=== PATIENT | female | born 1980 | race Caucasian/White ===

== ENCOUNTER 2016-10-25 13:04 | Emergency (ER) | payer MEDICAID ==
[~2016-10-25] VITALS: Ht 165.1 cm; Wt 60.0 kg
[2016-10-25] MEDS ORDERED: AMOXICILLIN500 MG PO (13:23)
[2016-10-25 13:35] VITALS: BP 139/84
== END 2016-10-25 13:35 | disposition home or self-care (01) | DRG 153 ==
LOC: ED 13:04
DX: J02.9 Acute pharyngitis, unspecified (principal); R09.81 Nasal congestion; R05 Cough

== ENCOUNTER 2018-01-09 19:18 | Emergency (ER) | payer SELFPAY ==
[~2018-01-09] VITALS: Ht 162.6 cm; Wt 71.0 kg
[~2018-01-09 19:18] MED LIST: AMOXICILLIN500 MG PO
[2018-01-09 20:02] LABS: HEMATOCRIT 37.8 % (37.0-47.0); IMMATURE GRANULOCYTES 0.2 % (0.0-5.0); MEAN CELL VOLUME 95.5 fL CALC (80.0-100.0); MEAN CORPUSCULAR HGB 32.8 pG CALC (26.0-32.0); MEAN CORPUSCULAR HGB CONC 34.4 g/L CALC (32.0-36.0); NEUT# 2.12 thou/uL (2.00-7.15); RED BLOOD COUNT 3.96 mill/uL (4.20-5.60); RED CELL DISTRI WIDTH 12.6 % (11.5-15.5)
[2018-01-09 20:23] LABS: ALBUMIN 4.9 g/dL (3.2-5.0); ALKALINE PHOSPHATASE 70 u/l (38-126); ANION GAP 14 (6-22 (CALC)); BILIRUBIN, TOTAL 0.4 mg/dL (0.0-1.4); BUN 13 mg/dL (7-17); BUN/CREATININE RATIO 17 (12-20 (CALC)); CARBON DIOXIDE 28 mmol/l (22-30); CHLORIDE 106 mmol/l (95-108); CREATININE 0.7 mg/dL (0.5-1.0); GFR > 60 ML/MIN (>=60 (CALC)); GFR FOR AFR.AMER. > 60 ML/MIN (>=60 (CALC)); POTASSIUM 3.8 mmol/l (3.5-5.1); SGOT/AST 24 u/l (14-36); SODIUM 144 mmol/l (137-146); TOTAL PROTEIN 8.1 g/dL (6.3-8.2)
[2018-01-09 20:52] LABS: URINE BILIRUBIN - DIPSTICK NEGATIVE (NEGATIVE); URINE BLOOD DIPSTICK LARGE (NEGATIVE); URINE CLARITY CLEAR; URINE GLUCOSE - DIPSTICK NEGATIVE (NEGATIVE); URINE KETONE NEGATIVE (NEGATIVE); URINE LEUK ESTERASE NEGATIVE (NEGATIVE); URINE NITRITE - DIPSTICK NEGATIVE (Negative); URINE PH 5.5 (4.5-8.0); URINE PROTEIN - DIPSTICK NEGATIVE (NEG-TRACE); URINE SPECIFIC GRAVITY <=1.005; URINE UROBILINOGEN - DIPSTICK 0.2 E.U./dL (0.2)
[2018-01-09 20:53] LABS: URINE COLOR RED
[2018-01-09 20:55] LABS: URINE RBC TNTC RBC/hpf (0-5); URINE SQUAMOUS EPITHELIAL CELL FEW EPI/hpf (0-FEW)
[2018-01-09] MEDS ORDERED: IBUPROFEN600 MG PO (21:22)
[2018-01-09 21:41] VITALS: BP 120/76
== END 2018-01-09 21:39 | disposition home or self-care (01) | DRG 696 ==
LOC: ED 19:18
DX: R31.9 Hematuria, unspecified (principal); N20.0 Calculus of kidney; Z87.442 Personal history of urinary calculi; M54.9 Dorsalgia, unspecified; R50.9 Fever, unspecified

== ENCOUNTER 2018-01-20 11:36 | Emergency (ER) | payer SELFPAY ==
[~2018-01-20] VITALS: Ht 162.6 cm; Wt 68.2 kg
[~2018-01-20 11:36] MED LIST changes: +IBUPROFEN600 MG PO
[2018-01-20 12:29] LABS: HEMATOCRIT 36.6 % (37.0-47.0); HEMOGLOBIN 12.6 g/dl (12.0-16.0); IMMATURE GRANULOCYTES 0.2 % (0.0-5.0); MEAN CELL VOLUME 96.1 fL CALC (80.0-100.0); MEAN CORPUSCULAR HGB 33.1 pG CALC (26.0-32.0); MEAN CORPUSCULAR HGB CONC 34.4 g/L CALC (32.0-36.0); NEUT# 2.96 thou/uL (2.00-7.15); RED BLOOD COUNT 3.81 mill/uL (4.20-5.60); RED CELL DISTRI WIDTH 12.4 % (11.5-15.5)
[2018-01-20 12:33] LABS: URINE BILIRUBIN - DIPSTICK NEGATIVE (NEGATIVE); URINE BLOOD DIPSTICK NEGATIVE (NEGATIVE); URINE COLOR YELLOW; URINE GLUCOSE - DIPSTICK NEGATIVE (NEGATIVE); URINE KETONE NEGATIVE (NEGATIVE); URINE LEUK ESTERASE NEGATIVE (NEGATIVE); URINE NITRITE - DIPSTICK NEGATIVE (Negative); URINE PROTEIN - DIPSTICK NEGATIVE (NEG-TRACE); URINE SPECIFIC GRAVITY >=1.030; URINE UROBILINOGEN - DIPSTICK 0.2 E.U./dL (0.2)
[2018-01-20 12:36] LABS: URINE CLARITY CLEAR
[2018-01-20 12:51] LABS: ALBUMIN 4.4 g/dL (3.2-5.0); ALKALINE PHOSPHATASE 62 u/l (38-126); ANION GAP 11 (6-22 (CALC)); BILIRUBIN, TOTAL 0.4 mg/dL (0.0-1.4); BUN 17 mg/dL (7-17); BUN/CREATININE RATIO 25 (12-20 (CALC)); CARBON DIOXIDE 26 mmol/l (22-30); CHLORIDE 108 mmol/l (95-108); CREATININE 0.7 mg/dL (0.5-1.0); GFR > 60 ML/MIN (>=60 (CALC)); GFR FOR AFR.AMER. > 60 ML/MIN (>=60 (CALC)); POTASSIUM 4.1 mmol/l (3.5-5.1); SGOT/AST 18 u/l (14-36); SODIUM 142 mmol/l (137-146); TOTAL PROTEIN 7.1 g/dL (6.3-8.2)
[2018-01-20 13:46] VITALS: BP 113/71
== END 2018-01-20 13:57 | disposition home or self-care (01) | DRG 694 ==
LOC: ED 11:36
DX: N20.0 Calculus of kidney (principal); Z87.442 Personal history of urinary calculi; R10.9 Unspecified abdominal pain
CPT/HCPCS: Q9967

== ENCOUNTER 2018-03-03 12:44 | Emergency (ER) | payer SELFPAY ==
[~2018-03-03] VITALS: Ht 162.6 cm; Wt 66.0 kg
[2018-03-03 14:09] LABS: URINE BILIRUBIN - DIPSTICK NEGATIVE (NEGATIVE); URINE BLOOD DIPSTICK NEGATIVE (NEGATIVE); URINE COLOR YELLOW; URINE GLUCOSE - DIPSTICK NEGATIVE (NEGATIVE); URINE KETONE NEGATIVE (NEGATIVE); URINE LEUK ESTERASE NEGATIVE (NEGATIVE); URINE NITRITE - DIPSTICK NEGATIVE (Negative); URINE PH 5.5 (4.5-8.0); URINE PROTEIN - DIPSTICK NEGATIVE (NEG-TRACE); URINE SPECIFIC GRAVITY <=1.005; URINE UROBILINOGEN - DIPSTICK 0.2 E.U./dL (0.2)
[2018-03-03 15:15] VITALS: BP 117/79
== END 2018-03-03 15:25 | disposition home or self-care (01) | DRG 206 ==
LOC: ED 12:44
PROVIDERS: Emergency Medicine
DX: M94.0 Chondrocostal junction syndrome [Tietze] (principal); F17.210 Nicotine dependence, cigarettes, uncomplicated; Z85.3 Personal history of malignant neoplasm of breast

== ENCOUNTER 2018-03-20 18:34 | Emergency (ER) | payer OTHER ==
[~2018-03-20] VITALS: Ht 162.6 cm; Wt 70.0 kg
[2018-03-20 19:12] VITALS: BP 142/86
== END 2018-03-20 19:12 | disposition home or self-care (01) | DRG 923 ==
LOC: ED 18:34
DX: Z04.1 Encounter for examination and observation following transport accident (principal); F17.210 Nicotine dependence, cigarettes, uncomplicated; Z96.89 Presence of other specified functional implants; Z85.3 Personal history of malignant neoplasm of breast

== ENCOUNTER 2018-05-04 08:41 | Emergency (ER) | payer SELFPAY ==
[~2018-05-04] VITALS: Ht 162.6 cm; Wt 65.0 kg
[2018-05-04 09:14] LABS: HEMOGLOBIN 13.3 g/dl (12.0-16.0); IMMATURE GRANULOCYTES 0.3 % (0.0-5.0); MEAN CELL VOLUME 96.6 fL CALC (80.0-100.0); MEAN CORPUSCULAR HGB 32.1 pG CALC (26.0-32.0); MEAN CORPUSCULAR HGB CONC 33.3 g/L CALC (32.0-36.0); NEUT# 2.63 thou/uL (2.00-7.15); RED BLOOD COUNT 4.14 mill/uL (4.20-5.60); RED CELL DISTRI WIDTH 12.9 % (11.5-15.5)
[2018-05-04 09:35] LABS: ANION GAP 15 (6-22 (CALC)); BUN 21 mg/dL (7-17); BUN/CREATININE RATIO 30 (12-20 (CALC)); CARBON DIOXIDE 25 mmol/l (22-30); CHLORIDE 104 mmol/l (95-108); CREATININE 0.7 mg/dL (0.5-1.0); GFR > 60 ML/MIN (>=60 (CALC)); GFR FOR AFR.AMER. > 60 ML/MIN (>=60 (CALC)); POTASSIUM 4.4 mmol/l (3.5-5.1); SODIUM 139 mmol/l (137-146)
[2018-05-04] MEDS ORDERED: MECLIZINE25 MG PO (09:55)
[2018-05-04 09:59] VITALS: BP 117/82
== END 2018-05-04 10:06 | disposition home or self-care (01) | DRG 149 ==
LOC: ED 08:41
PROVIDERS: Family Medicine
DX: R42 Dizziness and giddiness (principal); F17.200 Nicotine dependence, unspecified, uncomplicated

== ENCOUNTER 2018-05-08 09:30 | Emergency (ER) | payer SELFPAY ==
[~2018-05-08] VITALS: Ht 162.6 cm; Wt 45.0 kg
[~2018-05-08 09:30] MED LIST changes: +MECLIZINE25 MG PO
[2018-05-08 10:24] LABS: HEMATOCRIT 40.8 % (37.0-47.0); HEMOGLOBIN 13.6 g/dl (12.0-16.0); IMMATURE GRANULOCYTES 0.2 % (0.0-5.0); MEAN CELL VOLUME 97.1 fL CALC (80.0-100.0); MEAN CORPUSCULAR HGB 32.4 pG CALC (26.0-32.0); MEAN CORPUSCULAR HGB CONC 33.3 g/L CALC (32.0-36.0); NEUT# 2.49 thou/uL (2.00-7.15); RED BLOOD COUNT 4.2 mill/uL (4.20-5.60); RED CELL DISTRI WIDTH 12.7 % (11.5-15.5)
[2018-05-08 10:40] LABS: ANION GAP 15 (6-22 (CALC)); BUN 19 mg/dL (7-17); BUN/CREATININE RATIO 26 (12-20 (CALC)); CARBON DIOXIDE 26 mmol/l (22-30); CHLORIDE 104 mmol/l (95-108); CREATININE 0.8 mg/dL (0.5-1.0); GFR > 60 ML/MIN (>=60 (CALC)); GFR FOR AFR.AMER. > 60 ML/MIN (>=60 (CALC)); POTASSIUM 4.3 mmol/l (3.5-5.1); SODIUM 141 mmol/l (137-146)
[2018-05-08 12:09] VITALS: BP 145/77
== END 2018-05-08 12:09 | disposition home or self-care (01) | DRG 149 ==
LOC: ED 09:30
PROVIDERS: Family Medicine
DX: R42 Dizziness and giddiness (principal); F17.210 Nicotine dependence, cigarettes, uncomplicated; Z85.3 Personal history of malignant neoplasm of breast
CPT/HCPCS: Q9967

== ENCOUNTER 2018-07-10 09:28 | Emergency (ER) | payer SELFPAY ==
[~2018-07-10] VITALS: Ht 162.6 cm; Wt 65.0 kg
[2018-07-10] MEDS ORDERED: CYCLOBENZAPR5 MG PO (09:52)
[2018-07-10 09:56] VITALS: BP 128/68
== END 2018-07-10 09:59 | disposition home or self-care (01) | DRG 563 ==
LOC: ED 09:28
DX: S39.012A Strain of muscle, fascia and tendon of lower back, initial encounter (principal); F17.200 Nicotine dependence, unspecified, uncomplicated; X58.XXXA Exposure to other specified factors, initial encounter; Z87.442 Personal history of urinary calculi

== ENCOUNTER 2019-02-08 20:30 | Emergency (ER) | payer SELFPAY ==
[~2019-02-08] VITALS: Ht 162.6 cm; Wt 65.9 kg
[~2019-02-08 20:30] MED LIST changes: +CYCLOBENZAPR5 MG PO
[2019-02-08 23:45] VITALS: BP 128/72
[2019-02-08] MEDS ORDERED: GENTAMICIN SULF5 ML OD (23:55)
== END 2019-02-09 00:15 | disposition home or self-care (01) | DRG 125 ==
LOC: ED 20:30
PROC: 08C0XZZ Extirpation of Matter from Right Eye, External Approach (ICD-10-PCS; principal; 2019-02-08)
DX: T15.91XA Foreign body on external eye, part unspecified, right eye, initial encounter (principal); F17.210 Nicotine dependence, cigarettes, uncomplicated; X58.XXXA Exposure to other specified factors, initial encounter

== ENCOUNTER 2019-04-29 07:32 | Emergency (ER) | payer SELFPAY ==
[~2019-04-29 07:32] MED LIST changes: +GENTAMICIN SULF5 ML OD
[2019-04-29] MEDS ORDERED: VOLTAREN - GENE75 MG PO (07:58)
[2019-04-29 08:08] VITALS: BP 122/60
== END 2019-04-29 08:10 | disposition home or self-care (01) | DRG 563 ==
LOC: ED 07:32
DX: S29.012A Strain of muscle and tendon of back wall of thorax, initial encounter (principal); F17.200 Nicotine dependence, unspecified, uncomplicated; X58.XXXA Exposure to other specified factors, initial encounter

== ENCOUNTER 2019-12-12 13:45 | Emergency (ER) | payer BC ==
[~2019-12-12] VITALS: Ht 162.6 cm; Wt 65.0 kg
[~2019-12-12 13:45] MED LIST changes: +VOLTAREN - GENE75 MG PO
[2019-12-12] MEDS ORDERED: VOLTAREN1%GEL TOP (14:08)
[2019-12-12] MEDS ORDERED: CYCLOBENZAPR5 MG PO (14:08)
[2019-12-12 14:16] VITALS: BP 121/68
== END 2019-12-12 14:38 | disposition home or self-care (01) | DRG 552 ==
LOC: ED 13:45
DX: M54.5 Low back pain (principal); F17.210 Nicotine dependence, cigarettes, uncomplicated

== ENCOUNTER 2020-06-09 13:40 | Emergency (ER) | payer SELFPAY ==
[~2020-06-09 13:40] MED LIST changes: +VOLTAREN1%GEL TOP
[2020-06-09] MEDS ORDERED: CHOLESTEROL MED (13:55)
[2020-06-09 15:55] VITALS: BP 126/78
== END 2020-06-09 15:55 | disposition home or self-care (01) | DRG 103 ==
LOC: ED 13:40
DX: R51.9 Headache, unspecified (principal); F17.200 Nicotine dependence, unspecified, uncomplicated; Z85.3 Personal history of malignant neoplasm of breast; Z87.442 Personal history of urinary calculi

== ENCOUNTER 2020-07-05 11:40 | Emergency (ER) | payer SELFPAY ==
[~2020-07-05] VITALS: Ht 162.6 cm; Wt 68.0 kg
[~2020-07-05 11:40] MED LIST changes: +CHOLESTEROL MED
[2020-07-05] MEDS ORDERED: LORATADINE10 M4 PO (12:00)
[2020-07-05] MEDS ORDERED: ATORVASTATIN CA20 MG PO (12:00)
[2020-07-05] MEDS ORDERED: ALLERGY NA50 MCG/ACT NAB (12:00)
[2020-07-05 13:03] LABS: HEMOGLOBIN 12.6 g/dl (12.0-16.0); IMMATURE GRANULOCYTES 0.1 % (0.0-5.0); MEAN CELL VOLUME 95.1 fL CALC (80.0-100.0); MEAN CORPUSCULAR HGB 30.7 pG CALC (26.0-32.0); MEAN CORPUSCULAR HGB CONC 32.3 g/dL CAL (32.0-36.0); NEUT# 4.28 thou/uL (2.00-7.15); RED BLOOD COUNT 4.1 mill/uL (4.20-5.60); RED CELL DISTRI WIDTH 13.2 % (11.5-15.5)
[2020-07-05 13:22] LABS: ANION GAP 9 (6-22 (CALC)); BUN 20 mg/dL (7-17); BUN/CREATININE RATIO 28 (12-20 (CALC)); CARBON DIOXIDE 29 mmol/l (22-30); CHLORIDE 106 mmol/l (95-108); CREATININE 0.7 mg/dL (0.5-1.0); GFR > 60 ML/MIN (>=60 (CALC)); GFR FOR AFR.AMER. > 60 ML/MIN (>=60 (CALC)); POTASSIUM 4.3 mmol/l (3.5-5.1); SODIUM 139 mmol/l (137-146)
[2020-07-05 15:00] VITALS: BP 126/74
== END 2020-07-05 15:00 | disposition home or self-care (01) | DRG 125 ==
LOC: ED 11:40
PROVIDERS: Family Medicine
DX: H53.8 Other visual disturbances (principal); F17.200 Nicotine dependence, unspecified, uncomplicated
CPT/HCPCS: Q9967

== ENCOUNTER 2020-12-23 16:08 | Emergency (ER) | payer SELFPAY ==
[~2020-12-23] VITALS: Ht 162.6 cm; Wt 66.0 kg
[~2020-12-23 16:08] MED LIST changes: +ALLERGY NA50 MCG/ACT NAB; +ATORVASTATIN CA20 MG PO; +LORATADINE10 M4 PO
[2020-12-23 17:28] VITALS: BP 126/71
== END 2020-12-23 17:28 | disposition home or self-care (01) | DRG 153 ==
LOC: ED 16:08
DX: J02.9 Acute pharyngitis, unspecified (principal); F17.210 Nicotine dependence, cigarettes, uncomplicated; Z85.3 Personal history of malignant neoplasm of breast; Z20.822 Contact with and (suspected) exposure to COVID-19

== ENCOUNTER 2021-01-14 21:00 | Emergency (ER) | payer SELFPAY ==
[~2021-01-14] VITALS: Ht 162.6 cm; Wt 68.0 kg
[2021-01-14 21:45] LABS: URINE BILIRUBIN - DIPSTICK NEGATIVE (NEGATIVE); URINE BLOOD DIPSTICK NEGATIVE (NEGATIVE); URINE COLOR YELLOW; URINE GLUCOSE - DIPSTICK NEGATIVE (NEGATIVE); URINE KETONE NEGATIVE (NEGATIVE); URINE LEUK ESTERASE NEGATIVE (NEGATIVE); URINE NITRITE - DIPSTICK NEGATIVE (Negative); URINE PROTEIN - DIPSTICK NEGATIVE (NEG-TRACE); URINE SPECIFIC GRAVITY <=1.005; URINE UROBILINOGEN - DIPSTICK 0.2 E.U./dL (0.2)
[2021-01-14] MEDS ORDERED: DITROPAN XL10 MG PO (21:54)
[2021-01-14 22:08] VITALS: BP 124/69
== END 2021-01-14 22:30 | disposition home or self-care (01) | DRG 696 ==
LOC: ED 21:00
PROVIDERS: Family Medicine
DX: R35.0 Frequency of micturition (principal); F17.210 Nicotine dependence, cigarettes, uncomplicated

== ENCOUNTER 2021-06-28 16:58 | Emergency (ER) | payer OTHER ==
[~2021-06-28] VITALS: Ht 162.6 cm; Wt 59.6 kg
[~2021-06-28 16:58] MED LIST changes: +DITROPAN XL10 MG PO
[2021-06-28 17:14] VITALS: BP 121/83
[2021-06-28] MEDS ORDERED: FLOXIN OTIC0.3 % AS ×2 (17:35→17:42)
[2021-06-28 17:50] VITALS: BP 121/83
== END 2021-06-28 17:56 | disposition home or self-care (01) | DRG 156 ==
LOC: ED 16:58
DX: H60.92 Unspecified otitis externa, left ear (principal); F17.200 Nicotine dependence, unspecified, uncomplicated

== ENCOUNTER 2021-08-13 13:09 | Emergency (ER) | payer OTHER ==
[~2021-08-13] VITALS: Ht 162.6 cm; Wt 68.1 kg
[~2021-08-13 13:09] MED LIST changes: +FLOXIN OTIC0.3 % AS
[2021-08-13 13:14] VITALS: BP 140/88
[2021-08-13 13:36] VITALS: BP 131/81
[2021-08-13 14:01] VITALS: BP 121/62
[2021-08-13 14:16] VITALS: BP 107/81
[2021-08-13] MEDS ORDERED: METHOCARBAMOL500 MG PO (14:28)
[2021-08-13] MEDS ORDERED: NAPROXEN500 MG PO (14:28)
[2021-08-13 14:31] VITALS: BP 127/82
[2021-08-13 14:38] VITALS: BP 127/82
== END 2021-08-13 14:39 | disposition home or self-care (01) | DRG 552 ==
LOC: ED 13:09
DX: S16.1XXA Strain of muscle, fascia and tendon at neck level, initial encounter (principal); S46.911A Strain of unspecified muscle, fascia and tendon at shoulder and upper arm level, right arm, initial encounter; F17.200 Nicotine dependence, unspecified, uncomplicated; V43.54XA Car driver injured in collision with van in traffic accident, initial encounter

== ENCOUNTER 2021-12-28 19:06 | Emergency (ER) | payer SELFPAY ==
[~2021-12-28] VITALS: Ht 162.6 cm; Wt 68.0 kg
[~2021-12-28 19:06] MED LIST changes: +METHOCARBAMOL500 MG PO; +NAPROXEN500 MG PO
[2021-12-28 19:29] VITALS: BP 137/84
[2021-12-28 19:31] VITALS: BP 139/90
[2021-12-28 19:50] LABS: HEMATOCRIT 36.3 % (37.0-47.0); HEMOGLOBIN 12.2 g/dl (12.0-16.0); MEAN CORPUSCULAR HGB 31.9 pG CALC (26.0-32.0); MEAN CORPUSCULAR HGB CONC 33.6 g/dL CAL (32.0-36.0); NEUT# 2.97 thou/uL (2.00-7.15); RED BLOOD COUNT 3.82 mill/uL (4.20-5.60); RED CELL DISTRI WIDTH 12.7 % (11.5-15.5)
[2021-12-28 19:50] LABS: URINE BILIRUBIN - DIPSTICK NEGATIVE (NEGATIVE); URINE BLOOD DIPSTICK NEGATIVE (NEGATIVE); URINE COLOR YELLOW; URINE GLUCOSE - DIPSTICK NEGATIVE (NEGATIVE); URINE KETONE NEGATIVE (NEGATIVE); URINE LEUK ESTERASE NEGATIVE (NEGATIVE); URINE NITRITE - DIPSTICK NEGATIVE (Negative); URINE PROTEIN - DIPSTICK NEGATIVE (NEG-TRACE); URINE SPECIFIC GRAVITY 1.025; URINE UROBILINOGEN - DIPSTICK 0.2 E.U./dL (0.2)
[2021-12-28 20:02] LABS: ALBUMIN 4.4 g/dL (3.2-5.0); ALKALINE PHOSPHATASE 48 u/l (38-126); ANION GAP 11 (6-22 (CALC)); BILIRUBIN, TOTAL 0.4 mg/dL (0.0-1.4); BUN 21 mg/dL (7-17); BUN/CREATININE RATIO 28 (12-20 (CALC)); CARBON DIOXIDE 27 mmol/l (22-30); CHLORIDE 105 mmol/l (95-108); CREATININE 0.8 mg/dL (0.5-1.0); GFR FOR AFR.AMER. > 60 ML/MIN (>=60 (CALC)); GFR OTHER RACES > 60 ML/MIN (>=60 (CALC)); SGOT/AST 24 u/l (14-36); SODIUM 138 mmol/l (137-146); TOTAL PROTEIN 7.1 g/dL (6.3-8.2)
[2021-12-28] MEDS ORDERED: VOLTAREN75 MG PO (21:29)
[2021-12-28] MEDS ORDERED: ORPHENADRINE100 MG PO (21:29)
[2021-12-28 21:30] VITALS: BP 139/90
== END 2021-12-28 21:36 | disposition home or self-care (01) ==
LOC: ED 19:06
PROVIDERS: Family Medicine
DX: S39.012A Strain of muscle, fascia and tendon of lower back, initial encounter (principal); F17.200 Nicotine dependence, unspecified, uncomplicated; X58.XXXA Exposure to other specified factors, initial encounter; Z87.442 Personal history of urinary calculi

== ENCOUNTER 2022-02-24 13:27 | Emergency (ER) | payer SELFPAY ==
[~2022-02-24] VITALS: Ht 162.6 cm; Wt 65.9 kg
[~2022-02-24 13:27] MED LIST changes: +ORPHENADRINE100 MG PO; +VOLTAREN75 MG PO
[2022-02-24 13:47] VITALS: BP 111/51
[2022-02-24 14:13] VITALS: BP 111/51
[2022-02-24] MEDS ORDERED: ZPAK PO (15:28)
== END 2022-02-24 15:37 | disposition home or self-care (01) | DRG 153 ==
LOC: ED 13:27
DX: J02.9 Acute pharyngitis, unspecified (principal)

== ENCOUNTER 2022-10-01 08:36 | Emergency (ER) | payer BC ==
[~2022-10-01] VITALS: Ht 162.6 cm; Wt 65.0 kg
[~2022-10-01 08:36] MED LIST changes: +ZPAK PO
[2022-10-01 10:30] LABS: URINE BILIRUBIN - DIPSTICK NEGATIVE (NEGATIVE); URINE COLOR YELLOW; URINE GLUCOSE - DIPSTICK NEGATIVE (NEGATIVE); URINE KETONE Negative (NEGATIVE); URINE PROTEIN - DIPSTICK NEGATIVE (NEG-TRACE); URINE SPECIFIC GRAVITY 1.015
[2022-10-01 10:31] LABS: URINE BLOOD DIPSTICK NEGATIVE (NEGATIVE); URINE LEUK ESTERASE NEGATIVE (NEGATIVE); URINE NITRITE - DIPSTICK NEGATIVE (Negative); URINE UROBILINOGEN - DIPSTICK 0.2 E.U./dL (0.2)
[2022-10-01] MEDS ORDERED: IBUPROFEN600 MG PO ×2 (12:58→15:26)
[2022-10-01] MEDS ORDERED: METHOCARBAMOL500 MG PO ×2 (12:58→15:26)
[2022-10-01 13:00] VITALS: BP 130/77
== END 2022-10-01 13:00 | disposition home or self-care (01) | DRG 552 ==
LOC: ED 08:36
PROVIDERS: Family Medicine
DX: M54.50 Low back pain, unspecified (principal); F17.200 Nicotine dependence, unspecified, uncomplicated; Z85.3 Personal history of malignant neoplasm of breast; Z87.442 Personal history of urinary calculi

== ENCOUNTER 2022-11-12 09:10 | Emergency (ER) | payer BC ==
[~2022-11-12] VITALS: Ht 162.6 cm; Wt 66.0 kg
[2022-11-12 09:48] VITALS: BP 109/66
[2022-11-12 10:25] VITALS: BP 113/67
[2022-11-12 10:30] VITALS: BP 103/68
[2022-11-12 11:13] VITALS: BP 121/66
[2022-11-12 11:15] VITALS: BP 110/74
[2022-11-12] MEDS ORDERED: TAM75CAP PO (12:16)
[2022-11-12] MEDS ORDERED: IBUPROFEN600 MG PO (12:16)
[2022-11-12] MEDS ORDERED: PULMICORT90 MCG/ACT INHW/SPAC (12:16)
[2022-11-12 12:49] VITALS: BP 110/74
== END 2022-11-12 13:00 | disposition home or self-care (01) | DRG 195 ==
LOC: ED 09:10
DX: J10.1 Influenza due to other identified influenza virus with other respiratory manifestations (principal); F17.200 Nicotine dependence, unspecified, uncomplicated; Z20.822 Contact with and (suspected) exposure to COVID-19

== ENCOUNTER 2024-01-16 17:03 | Emergency (ER) | payer OTHER ==
[~2024-01-16] VITALS: Ht 162.6 cm; Wt 65.7 kg
[~2024-01-16 17:03] MED LIST changes: +FLEXERIL5 M1 PO; +MOTRIN800 MG PO; +PREDNISONE50 MG PO; +PULMICORT90 MCG/ACT INHW/SPAC; +TAM75CAP PO
[2024-01-16 17:10] VITALS: BP 140/86
[2024-01-16 17:15] VITALS: BP 132/87
== END 2024-01-16 17:18 | disposition home or self-care (01) | DRG 923 ==
LOC: ED 17:03
DX: Z04.1 Encounter for examination and observation following transport accident (principal); F17.200 Nicotine dependence, unspecified, uncomplicated

== ENCOUNTER 2024-03-31 15:21 | Emergency (ER) | payer MEDICAID ==
[~2024-03-31] VITALS: Ht 162.6 cm; Wt 65.8 kg
[2024-03-31 15:28] VITALS: BP 118/75
[2024-03-31 15:30] VITALS: BP 119/76
[2024-03-31 15:45] VITALS: BP 121/71
[2024-03-31 16:00] VITALS: BP 115/69
[2024-03-31] MEDS ORDERED: BENZONATATE200 MG PO (16:25)
[2024-03-31] MEDS ORDERED: AZELASTINE HCL0.1 % ×2 (16:25→16:26)
[2024-03-31] MEDS ORDERED: ZPAK PO (16:25)
[2024-03-31 16:27] VITALS: BP 115/69
== END 2024-03-31 16:31 | disposition home or self-care (01) ==
LOC: ED 15:21
DX: J02.9 Acute pharyngitis, unspecified (principal); J31.0 Chronic rhinitis; F17.200 Nicotine dependence, unspecified, uncomplicated; Z20.822 Contact with and (suspected) exposure to COVID-19

== ENCOUNTER 2024-05-18 19:12 | Emergency (ER) | payer OTHER ==
[~2024-05-18] VITALS: Ht 162.6 cm; Wt 65.0 kg
[~2024-05-18 19:12] MED LIST changes: +AZELASTINE HCL0.1 %; +BENZONATATE200 MG PO
[2024-05-18] MEDS ORDERED: Diph, Acellular Pertussis, Tet 0.5 ML/VIAL (Tdap) SDV IM ONE (19:25)
[2024-05-18 19:48] VITALS: BP 125/75
[2024-05-18 20:09] VITALS: BP 125/75
== END 2024-05-18 20:14 | disposition home or self-care (01) | DRG 605 ==
LOC: ED 19:12
DX: S80.01XA Contusion of right knee, initial encounter (principal); S80.211A Abrasion, right knee, initial encounter; F17.210 Nicotine dependence, cigarettes, uncomplicated; Y93.55 Activity, bike riding; V28.09XA Other motorcycle driver injured in noncollision transport accident in nontraffic accident, initial encounter
CPT/HCPCS: 90715